=== PATIENT | male | born 1980 | race African-American/Black ===

== ENCOUNTER 2018-02-16 22:22 | Emergency (ER) | payer OTHER ==
[~2018-02-16] VITALS: Ht 180.3 cm; Wt 77.1 kg
[2018-02-16] MEDS ORDERED: HIV MED (22:58)
--- NOTE | 2018-02-16 23:16 | NUR ---
Patient ambulated to ER with steady gait, c/o lower back pain, was lifting some planks at work.
--- NOTE | 2018-02-17 00:09 | NUR ---
Dr. Dotson at bedside for MSE.
--- NOTE | 2018-02-17 00:30 | NUR ---
Patient discharged to home in stable conditon. Written and verbal after care instructions given. Patient verbalizes understanding of instructions. Patient ambulated out of ER with steady gait, no acute signs of distress, VSS, all belongings taken.
[2018-02-17 00:33] VITALS: BP 117/73
== END 2018-02-17 00:33 | disposition home or self-care (01) ==
LOC: ER 22:24
DX: B35.6 Tinea cruris (principal); M54.5 Low back pain; Z79.899 Other long term (current) drug therapy
CPT/HCPCS: A4663